=== PATIENT | male | born 1965 | race Caucasian/White ===

== ENCOUNTER → 2017-12-31 09:48 | Outpatient (REF) | payer MEDICAID, SELFPAY ==
[2017-12-31 17:15] LABS: Basophils % 0.7 % (0.1-2.0); Eosinophils # 0.1 K/mm3 (0.0-0.4); Hematocrit 49.3 % (42.0-52.0); Hemoglobin 15.3 g/dL (14.1-18.0); Lymphocytes # 2.3 K/mm3 (0.7-4.5); Lymphocytes % 35.5 K/mm3 (10-50); Mean Corpuscular HGB Conc 31.1 g/dL (31.8-35.4); Mean Corpuscular Hemoglobin 29.1 pg (27.0-31.2); Mean Corpuscular Volume 93.5 fl (80-94); Mean Platelet Volume 8.6 fl (7.4-10.4); Monocytes # 0.4 K/mm3 (0.1-1.0); Monocytes % 5.7 % (1.7-9.3); Neutrophils # 3.7 K/mm3 (1.8-7.8); Neutrophils % 56.2 % (37.0-80.0); Platelet Count 380 K/mm3 (142-424); Red Blood Count 5.27 M/mm3 (4.60-6.20); Red Cell Distribution Width 14.1 % (11.5-17.5); White Blood Count 6.6 K/mm3 (4.8-10.8)
[2017-12-31 18:26] LABS: Lipase 152 u/L (73-393)
[2017-12-31 18:40] LABS: Alanine Aminotransferase 102 U/L (12-78); Albumin Level 3.3 gm/dL (3.4-5.0); Albumin/Globulin Ratio 0.8 (1.1-1.8); Alkaline Phosphatase 111 U/L (46-116); Amylase 60 U/L (25-125); Anion Gap 12.8 mEq/L (5-15); Aspartate Amino Transferase 48 U/L (15-37); Bilirubin,Total 0.2 mg/dL (0.2-1.0); Blood Urea Nitrogen 13 mg/dL (7-18); Calcium 8.9 mg/dL (8.5-10.1); Carbon Dioxide 26 mmol/L (21.0-32.0); Chloride 105 mmol/L (98-107); Chol/HDL Ratio 2.9 (1-3.5); Cholesterol 173 mg/dL (140-200); Estimated Glomerular Filt Rate 119 ml/min (>60); Free T4 (Free Thyroxine) 1.11 ng/dl (0.76-1.46); GFR (African American) 144 ML/MIN (>60); Globulin 4.2 gm/dl (1.3-3.2); Glucose 88 mg/dL (74-106); HDL Cholesterol 60 mg/dL (27-67); LDL Cholesterol 100 mg/dL (0-130); Potassium 4.8 mmoL/L (3.5-5.1); Sodium 139 mmol/L (136-145); Thyroid Stimulating Hormone 0.59 uIU/ml (0.358-3.740); Total Protein,Serum 7.5 gm/dL (6.4-8.2); Triglycerides 67 mg/dL (30-200); VLDL Cholesterol 13 mg/dL (0-40)
[2018-01-02 19:01] LABS: Vitamin D 25 Hydroxy 13.3 ng/mL (30.0-100.0)
[2018-01-03 13:09] LABS: Hep A Ab, IgM Negative (Negative); Hepatitis B Core Antibody IgM Negative (Negative); Hepatitis B Surface Antigen Confirm. indicated (Negative)
[2018-01-04 03:38] LABS: HBsAg Confirmation Positive (.); Hepatitis C Antibody >11.0 s/co ratio (0.0-0.9)
== END ==
LOC: LAB 09:48
PROVIDERS: Visit Provider Nurse Practitioner Family
DX: R53.83 Other fatigue (principal); B18.1 Chronic viral hepatitis B without delta-agent; B18.2 Chronic viral hepatitis C; R10.11 Right upper quadrant pain
CPT/HCPCS: 80053; 80061; 80074; 82150; 82652; 83690; 84439; 84443; 85025

== ENCOUNTER → 2018-01-08 07:40 | Outpatient (CLI) | payer MEDICAID, SELFPAY ==
--- NOTE | 2018-01-08 07:44 | US_ITS ---
US liver COMPARISON: None HISTORY: Right upper quadrant pain, history of hepatitis B and C TECHNIQUE: Targeted ultrasound the liver FINDINGS: There is slightly overall increased echogenicity of the liver parenchyma with slightly increased brightness of the portal vein manzano findings consistent with hepatitis. 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 There is no definite sludge and there are no gallstones seen. The common bile duct is normal caliber. The right kidney measures 12.0 x 6.2 x 6.3 cm and shows a good cortical thickness with no hydronephrosis or other abnormality. IMPRESSION: Mildly overall increased echogenicity of liver parenchyma with right basilic portal vein manzano findings which are frequently seen in hepatitis, no other significant abnormality noted
== END ==
PROVIDERS: PCP Nurse Practitioner Family; Visit Provider Nurse Practitioner Family
DX: B18.1 Chronic viral hepatitis B without delta-agent (principal); B18.2 Chronic viral hepatitis C; R10.11 Right upper quadrant pain
CPT/HCPCS: 76705